=== PATIENT | female | born 1985 | race Caucasian/White ===

== ENCOUNTER 2018-08-24 13:20 | Emergency (ER) | payer MEDICARE, MEDICAID ==
[~2018-08-24] VITALS: Ht 154.9 cm; Wt 92.1 kg
[~2018-08-24 13:20] MED LIST: CLON-528 PO; ESZO3TAB24; FLUO20CA39 PO; IBUP-1984 PO; LAMO100T2 PO; LIOT25TA8 PO; MIN5C PO; TRAZ-91 PO; VILA1TAB PO; ZALE5CAP PO; ZIPR20CA2 PO; [UNRECOGNIZED DRUG - CODE] PO
[2018-08-24] MEDS ORDERED: ibuprofen tablet 400 MG TABLET PO ONE (14:20)
[2018-08-24 14:42] LABS: URINE HCG NEGATIVE (NEG)
[2018-08-24 14:48] LABS: CLARITY,URINE SLIGHTLY CLOUDY (Clear); COLOR,URINE YELLOW (Yellow); GLUCOSE, URINE NEGATIVE (Neg); KETONES,URINE NEGATIVE (Neg); LEUKOCYTE ESTERASE ,URINE SMALL (Neg); NITRITES, URINE POSITIVE (Neg); OCCULT BLOOD,URINE LARGE (Neg); PH,URINE 5.5 (4.8-8.0); PROTEIN,URINE NEGATIVE (Neg); UROBILINOGEN,URINE 0.2 E.U/dL (0.2-1.0)
[2018-08-24 14:50] LABS: URINE AMPHETAMINE SCREEN NEGATIVE (Neg); URINE BARBITUATE SCREEN NEGATIVE (Neg); URINE BENZODIAZEPINES SCREEN POSITIVE (Neg); URINE CANNABINOID SCREEN NEGATIVE (Neg); URINE COCAINE SCREEN NEGATIVE (Neg); URINE METHADONE SCREEN NEGATIVE (Neg); URINE OPIATE SCREEN NEGATIVE (Neg); URINE PHENCYCLIDINE SCREEN NEGATIVE (Neg)
[2018-08-24 14:53] LABS: UA COLLECTION TYPE CLN CATCH MIDSTREAM
[2018-08-24 15:00] LABS: BACTERIA,URINE 2+ /HPF (Neg); SQUAMOUS EPITHELIAL CELL,UR MANY /LPF (FEW)
[2018-08-24 15:01] LABS: MUCUS STRANDS NONE SEEN /LPF (Neg)
[2018-08-24 15:44] LABS: BASOPHILS # (AUTO) 0.1 X10'3 (0-0.2); BASOPHILS % (AUTO) 0.7 % (0-1); EOSINOPHILS % (AUTO) 0 % (0-6); HEMATOCRIT 42.6 % (35.0-45.0); HEMOGLOBIN 14.3 g/dl (12.0-16.0); LYMPHOCYTES # (AUTO) 2.3 X10'3 (1.1-4.8); LYMPHOCYTES % (AUTO) 31.3 % (21-51); MEAN CORPUSCULAR HEMOGLOBIN 31.7 PG (27.0-31.0); MEAN CORPUSCULAR HGB CONC 33.7 % (33.0-36.5); MEAN CORPUSCULAR VOLUME 94.2 FL (78-98); MEAN PLATELET VOLUME 8.2 FL (7.4-10.4); MONOCYTES # (AUTO) 0.4 X10'3 (0-0.9); MONOCYTES % (AUTO) 6.1 % (2-12); NEUTROPHILS # (AUTO) 4.6 X10'3 (1.8-7.7); NEUTROPHILS % (AUTO) 61.9 % (42-75); PLATELET COUNT 313 X10'3 (140-440); RED BLOOD COUNT 4.52 X10'6 (4.20-5.60); RED CELL DISTRIBUTION WIDTH 12.7 % (11.5-14.5); WHITE BLOOD COUNT 7.4 X10'3 (4.5-11.0)
[2018-08-24] MEDS ORDERED: nitrofuran/nitrofuran macrocrysal 100 MG capsule PO ONE ×2 (16:00→18:35)
[2018-08-24 16:02] LABS: ALANINE AMINOTRANSFERASE 29 U/L (12-78); ALBUMIN/GLOBULIN RATIO 1.3 (1.1-1.5); ALKALINE PHOSPHATASE 115 IU/L (46-116); ANION GAP 9 (8-16); ASPARTATE AMINO TRANSFERASE 12 U/L (10-37); BILIRUBIN,TOTAL 0.4 MG/DL (0.1-1.0); BLOOD UREA NITROGEN 12 MG/DL (7-18); BUN/CREATININE RATIO 14.1 (6.6-38.0); CALCIUM 9.3 MG/DL (8.5-10.1); CHLORIDE 104 MMOL/L (99-107); CREATININE 0.85 MG/DL (0.40-0.90); GLUCOSE 78 MG/DL (70-104); POTASSIUM 3.7 MMOL/L (3.5-5.1); SODIUM 138 MMOL/L (135-145); TOTAL CARBON DIOXIDE 25.1 MMOL/L (24-32); eGFR 76 ML/MIN
[2018-08-24 16:11] LABS: ETHANOL < 0.010 GM/DL (0.0-0.010)
[2018-08-24 17:37] VITALS: BP 114/69
[2018-08-24] MEDS ORDERED: OXCA300T52 PO (18:34)
[2018-08-24] MEDS ORDERED: HALO2TAB PO (18:34)
[2018-08-24] MEDS ORDERED: IBUP-2417 (18:39)
[2018-08-24] MEDS ORDERED: ibuprofen 200mg tablet PO PRN (19:10)
[2018-08-24] MEDS ORDERED: oxcarbazepine 150mg tablet PO SCH (20:00)
[2018-08-24] MEDS ORDERED: HALO5TAB PO (20:19)
[2018-08-24] MEDS ORDERED: haloperidol 1mg tablet PO SCH ×2 (21:00→23:15)
[2018-08-24] MEDS ORDERED: haloperidol 5mg tablet PO ONE (23:15)
[2018-08-24] MEDS ORDERED: haloperidol 1mg tablet PO ONE (23:15)
[2018-08-25] MEDS ORDERED: oxcarbazepine 150mg tablet PO SCH (08:00)
[2018-08-25] MEDS ORDERED: nitrofuran/nitrofuran macrocrysal 100 MG capsule PO ONE (08:00)
[2018-08-25] MEDS ORDERED: benztropine 1mg tablet PO SCH (08:00)
[2018-08-25] MEDS ORDERED: haloperidol 5mg tablet PO SCH (08:00)
== END 2018-08-25 01:43 | disposition home or self-care (01) ==
LOC: ER 13:21
DX: R45.851 Suicidal ideations (principal); M25.532 Pain in left wrist; F31.9 Bipolar disorder, unspecified; Z88.2 Allergy status to sulfonamides; Z88.7 Allergy status to serum and vaccine; Z79.899 Other long term (current) drug therapy
CPT/HCPCS: 36415; 73110; 80053; 80305; 80320; 81001; 81025; 84443; 85025; 99284

== ENCOUNTER 2018-08-24 23:30 | Inpatient (IN) | payer MEDICARE, MEDICAID ==
[~2018-08-24] VITALS: Ht 154.9 cm; Wt 97.7 kg
[~2018-08-24 23:30] MED LIST changes: +HALO2TAB PO; +HALO5TAB PO; +IBUP-2417; +OXCA300T52 PO
[2018-08-25 04:51] VITALS: BP 108/78
[2018-08-25] MEDS ORDERED: acetaminophen 325mg tablet PO PRN ×2 (04:55)
[2018-08-25] MEDS ORDERED: magnesium hydroxide 30ml (MOM) UD suspension PO PRN (04:55)
[2018-08-25 08:00] VITALS: BP 105/54
[2018-08-25] MEDS: oxcarbazepine 150mg tablet PO SCH ×2 (08:06→20:45)
[2018-08-25] MEDS: haloperidol 5mg tablet PO SCH ×2 (13:28→20:45)
[2018-08-25] MEDS ORDERED: nitrofurantoin macrocrystal 100mg capsule PO SCH (17:30)
[2018-08-25] MEDS: nitrofuran/nitrofuran macrocrysal 100 MG capsule PO SCH (18:18)
[2018-08-25 20:00] VITALS: BP 115/79
[2018-08-26 07:00] VITALS: BP 102/60
[2018-08-26] MEDS: haloperidol 5mg tablet PO SCH (07:53)
[2018-08-26] MEDS: nitrofuran/nitrofuran macrocrysal 100 MG capsule PO SCH ×2 (07:54→17:35)
[2018-08-26] MEDS: oxcarbazepine 150mg tablet PO SCH ×2 (07:54→20:52)
[2018-08-26 08:19] LABS: HEMOGLOBIN A1C 5.7 % (4.5-6.2)
[2018-08-26 08:20] LABS: CHOL/HDL RATIO 3.9 (0.00-4.99); CHOLESTEROL 150 MG/DL (0-200); HDL CHOLESTEROL 38 MG/DL (35-60); LDL CHOLESTEROL 102 MG/DL (50-100); TRIGLYCERIDES 58 MG/DL (20-135)
[2018-08-26] MEDS ORDERED: paliperidone 1.5mg ER tablet PO ONE (08:20)
[2018-08-26] MEDS: ibuprofen tablet 400 MG TABLET PO PRN (09:50)
[2018-08-26 20:00] VITALS: BP 114/77
[2018-08-26] MEDS ORDERED: haloperidol 5mg tablet PO SCH (21:00)
[2018-08-27 07:00] VITALS: BP 118/80
[2018-08-27] MEDS: nitrofuran/nitrofuran macrocrysal 100 MG capsule PO SCH (07:52)
[2018-08-27] MEDS: oxcarbazepine 150mg tablet PO SCH ×2 (07:53→20:11)
[2018-08-27] MEDS ORDERED: paliperidone 1.5mg ER tablet PO SCH (08:00)
[2018-08-27 15:55] LABS: CLARITY,URINE SLIGHTLY CLOUDY (Clear); COLOR,URINE STRAW (Yellow); GLUCOSE, URINE NEGATIVE (Neg); KETONES,URINE NEGATIVE (Neg); LEUKOCYTE ESTERASE ,URINE TRACE (Neg); NITRITES, URINE NEGATIVE (Neg); OCCULT BLOOD,URINE MODERATE (Neg); PROTEIN,URINE NEGATIVE (Neg); UROBILINOGEN,URINE 0.2 E.U/dL (0.2-1.0)
[2018-08-27 15:57] LABS: UA COLLECTION TYPE CLN CATCH MIDSTREAM
[2018-08-27 16:07] LABS: BACTERIA,URINE FEW /HPF (Neg); RBC,URINE 0-2 /HPF (0-2); SQUAMOUS EPITHELIAL CELL,UR FEW /LPF (FEW); WBC,URINE 0-4 /HPF (0-4)
[2018-08-27] MEDS: mag hydrox/Alum hydrox/simeth 30ml oral suspension PO PRN (19:10)
[2018-08-27 20:00] VITALS: BP 129/84
[2018-08-27] MEDS: temazepam 15mg capsule PO PRN (20:15)
[2018-08-28] MEDS: LORazepam 1 MG tablet PO PRN ×3 (02:22→20:48)
[2018-08-28 07:00] VITALS: BP 120/72
[2018-08-28] MEDS: oxcarbazepine 150mg tablet PO SCH ×2 (08:09→20:48)
[2018-08-28] MEDS: PALIPERIDONE 3 MG TAB.ER.24 PO SCH (08:09)
[2018-08-28] MEDS: mag hydrox/Alum hydrox/simeth 30ml oral suspension PO PRN (09:32)
[2018-08-28] MEDS ORDERED: pantoprazole 40mg Tablet.DR PO ONE (09:41)
[2018-08-28] MEDS: ibuprofen tablet 400 MG TABLET PO PRN (13:33)
[2018-08-28 20:03] VITALS: BP 123/85
[2018-08-28] MEDS: temazepam 15mg capsule PO PRN (20:48)
[2018-08-29] MEDS: PALIPERIDONE 3 MG TAB.ER.24 PO SCH (07:31)
[2018-08-29] MEDS: pantoprazole 40mg Tablet.DR PO SCH (07:31)
[2018-08-29] MEDS: oxcarbazepine 150mg tablet PO SCH ×2 (07:31→20:18)
[2018-08-29 08:15] VITALS: BP 119/79
[2018-08-29 20:08] VITALS: BP 132/88
[2018-08-29] MEDS: temazepam 15mg capsule PO PRN (20:18)
[2018-08-29] MEDS: LORazepam 1 MG tablet PO PRN (20:18)
[2018-08-30] MEDS: pantoprazole 40mg Tablet.DR PO SCH (07:46)
[2018-08-30] MEDS: PALIPERIDONE 3 MG TAB.ER.24 PO SCH (07:46)
[2018-08-30] MEDS: oxcarbazepine 150mg tablet PO SCH ×2 (07:47→20:56)
[2018-08-30 08:00] VITALS: BP 111/77
[2018-08-30 19:44] VITALS: BP 111/80
[2018-08-30] MEDS: temazepam 15mg capsule PO PRN (20:56)
[2018-08-30] MEDS: LORazepam 1 MG tablet PO PRN (21:05)
[2018-08-31] MEDS ORDERED: LORA0.5T PO (07:37)
[2018-08-31] MEDS ORDERED: TEMA15CA PO (07:37)
[2018-08-31] MEDS ORDERED: OXCA300T16 PO (07:37)
[2018-08-31] MEDS ORDERED: PANT40TA4 PO (07:37)
[2018-08-31] MEDS ORDERED: PALI3TAB5 PO (07:37)
[2018-08-31] MEDS: PALIPERIDONE 3 MG TAB.ER.24 PO SCH (07:41)
[2018-08-31] MEDS: oxcarbazepine 150mg tablet PO SCH (07:41)
[2018-08-31] MEDS: pantoprazole 40mg Tablet.DR PO SCH (07:42)
[2018-08-31 08:00] VITALS: BP 125/84
== END 2018-08-31 10:52 | disposition home or self-care (01) | DRG 885 ==
LOC: ADULT MH 23:30
PROVIDERS: ADMIT Psychiatry & Neurology Psychiatry; ATTEND Psychiatry & Neurology Psychiatry
DX: F25.0 Schizoaffective disorder, bipolar type (principal); R45.851 Suicidal ideations; F60.3 Borderline personality disorder; E05.90 Thyrotoxicosis, unspecified without thyrotoxic crisis or storm; M25.532 Pain in left wrist; F41.9 Anxiety disorder, unspecified; I10 Essential (primary) hypertension; Z90.49 Acquired absence of other specified parts of digestive tract; Z88.2 Allergy status to sulfonamides; Z88.7 Allergy status to serum and vaccine; Z91.041 Radiographic dye allergy status; Z79.899 Other long term (current) drug therapy
CPT/HCPCS: 36415; 73110; 76536; 80061; 81001; 83036; 84439; 84443; 84480; 87088; 99285